=== PATIENT | female | born 1995 | race Caucasian/White ===

== ENCOUNTER 2024-08-19 08:35 | Outpatient (CLI) | payer MEDICAID, SELFPAY ==
--- NOTE | ~2024-08-19 | MR_ITS ---
MRI of the left foot Clinical history: Pain TECHNIQUE: Coronal T1-weighted and T2 fat-sat images, axial T1-weighted and T2 fat-sat images, and sa gittal T1-weighted and T2 fat-sat images were performed. Following intravenous administration of 20 c c MultiHance gadolinium, T1-weighted fat-sat imaging was performed in the axial, coronal, and sagitta l planes. FINDINGS: No bone marrow signal reality seen. No fracture or bone marrow edema. No evidence for osteo myelitis. Joint spaces are preserved without evidence for degenerative or erosive arthropathy. Small joint effusion present at the first MTP joint. Possible minimal intermetatarsal bursitis at the second interspace. No Jackson's neuroma evident. Flex or and extensor tendons appear intact. No soft tissue mass or fluid collection seen. No abnormal postcontrast enhancement identified. IMPRESSION: Possible minimal intermetatarsal bursitis at the second interspace. Reviewed, dictated and finalized at [facility].
--- OUTSIDE RECORDS SUMMARY | 2024-08-19 08:49 | XMS_ITS | Clinical Summary ---
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 2 Active ibuprofen (MOTRIN) 600 mg tablet Take 1 Tablet (600 mg) by mouth every 6 hours as needed for Pain, Mild. 60 Tablet 4 Active cyclobenzaprine (FLEXERIL) 5 mg Tablet Take 1 Tablet (5 mg) by mouth 3 times daily as needed for Spasm or Pain. 30 Tablet 4 Active Active Problems No known active problems Encounters Date Type Department Care Team Description 06/15/2024 External Device Data [facility] ABSTRACTION Provider, Abstract 05/22/2024 External Device Data [facility] ABSTRACTION Provider, Abstract 05/21/2024 External Device Data [facility] ABSTRACTION Provider, Abstract from Last 3 Months Social History Tobacco Use Types Packs/Day Years Used Date Smoking Tobacco: Never Smokeless Tobacco: Never Tobacco Cessation:Counseling Given: No Alcohol Use Standard Drinks/Week Comments Yes 0 (1 standard drink = 0.6 oz pur e alcohol) Comments Unknown Sex and Gender Information Value Date Recorded Sex Assigned at Not on file Legal Sex Female 3:02 PM CDT Gender Identity Not on file Sexual Orientation Not on file Last Filed Vital Signs Vital Sign Reading Time Taken Comments Blood Pressure 137/79 01/29/2024 1:20 PM [employer]ARLY [employer] SPECIALIST Pulse 118 01/29/2024 1:20 PM E[employer] SPECIALIST Temperature - - Respiratory Rate - - Oxygen Saturation 93% 01/29/2024 1:20 PM EARLY CHILDHO[employer] SPECIALIST Inhaled Oxygen Concentration - - Weight - - Height - - Body Mass Index - - Plan of Treatment Health Maintenance Due Date Last Done Comments HEPATITIS B VACCINES (1 of 3 - 19+ 3-dose series) 2013 Preventative Visit-Managed Medicaid 2013 HPV/Cotest (21-29) 06/07/2015 CERVICAL CANCER SCREENING 2024 HPV/Cotest (30-65) 2024 PAP SMEAR 2024 DTAP/TDAP/TD VACCINES (4 - T d or Tdap) 01/08/2033 01/08/2023, 06/25/2021, 11/08/2008 INFLUENZA VACCINE Completed 01/29/2024 HPV VACCINES Aged Out No longer eligi ble based on patient's age to complete this topic Insurance [facility] [id number] Care Teams Cider Press Operator Relationship Specialty Start Date End Date Randall Rinaldi MD [address] [place] [id number] PCP - General Family Practice 01/29/24
== END 2024-08-19 08:36 | disposition home or self-care (01) ==
LOC: CHSIMG 08:39
PROVIDERS: Visit Provider Podiatrist
DX: S93.622D Sprain of tarsometatarsal ligament of left foot, subsequent encounter (principal)
CPT/HCPCS: 73720; A9577